=== PATIENT | female | born 1940 | race Caucasian/White ===

== ENCOUNTER 2021-05-11 12:57 | Emergency (ER) | payer OTHER ==
[~2021-05-11] VITALS: Ht 149.9 cm; Wt 63.5 kg
--- NOTE | ~2021-05-11 | EMS ---
[address] [address] EMS Patient Care Report Name: LB BEE Room #: REG CAROLINE Kemp#: [id number] Admission: 05/11/21 Attend Phys: Discharge: Date of : 36 Report #: [id number] THIS REPORT FOR: //name// Report Transmitted: 05/11/2021 14:39 EMS Care Summary [facility] Incident [id number] @ 05/11/2021 12:23 Incident Location [address] [place] [address] Patient LB BEE Female, 80 Years 1940 Patient Address [address] [place] [address] Patient History Asthma,Urinary Tract Infection (UTI), Patient Allergies Codeine, Patient Medications Lyrica, Atorvastatin, Xarelto, Chief Complaint "I think I have a UTI" Disposition Transported No Lights/[place] Dispatch Reason Sick Person Transported To [facility] Narrative [id number] responds C1 to report of possible sick person at independent living facility. After unremarkable response phase 1144 enters scene to find one pt [address] [address] EMS Patient Care Report Name: LB BEE Room #: REG CAROLINE Kemp#: [id number] Admission: 05/11/21 Attend Phys: Discharge: Date of : 36 Report #: [id number] supine in her bed w/ her daughter at her side. Pt daughter states that she activated EMS because her mother has been "slowly declining" over the past six days. Pt states that she simply "doesn't feel good" and believes she has a UTI because she has low grade tenderness in bilateral quadrants of her lower abdomen. She states that she has no CP, SOB, Palpitations, or other signs of a cardiac event. Pt states that she has chronic UTI's and that she is prescribed a daily abx due to this. However, pt states that she has not taken the antibiotic over the past six days because she hasn't felt well enough. Pt states that she would like to be transported to [facility], but due to their "High volume" status, settles on [facility]. Pt rests comfortably on EMS cot through duration of care which is transferred to triage staff at [facility]. 1144 clears and returns to service. Initial Vitals @12:40BP: 142/80, @12:31P: 84,R: 16,BP: 135/79,Pain: 0/10,GCS: 15,Temp: 98.1F,SpO2: 95,Revised Trauma: 12, Assessments @12:30MENTAL:Person Oriented,Time Oriented,Place Oriented,Event Oriented,SKIN:HEENT:LUNG SOUNDS:General: Diarrhea,Left Lower: Tenderness,Right Lower: Tenderness,ABDOMEN:General: Diarrhea,Left Lower: Tenderness,Right Lower: Tenderness,PELVIS//GI:EXTREMITIES:PULSE:NEURO:No Abnormalities, Impression Urinary Tract Infection (UTI) Procedures @PTASurgical Mask on PatientResponse: Unchanged Timeline [employer],Surgical Mask on Patient,Response: Unchanged 12:20,Call Received 12:20,Psap Call 12:23,Dispatched 12:23,En Route 12:24,On Scene 12:29,At Patient 12:31,BP: 135/79 M,PULSE: 84,RR: 16 R,SPO2: 95 Ox,ETCO2: ,BG: ,PAIN: 0,GCS: 15, 12:40,BP: 142/80 M,PULSE: ,RR: R,SPO2: Ox,ETCO2: ,BG: ,PAIN: ,GCS: , 12:45,Depart Scene 13:06,At Destination 13:11,Call Closed Disclaimer v1.1 Copyright 2020 [employer], [address] [address] EMS Patient Care Report Name: LB BEE Room #: REG [facility].#: [id number] Admission: 05/11/21 Attend Phys: Discharge: Date of : 36 Report #: [id number] This EMS Care Summary contains data elements from the applicable legal record (which may be displayed differently). It is designed to provide pertinent information for the following purposes: continuity of care, clinical quality, and state data reporting. The complete legal record is available to ED staff and administrators of the receiving hospital in [employer] Patient Tracker. All data is provided "as is."
[2021-05-11 14:42] LABS: CALCIUM 9.4 mg/dL (8.5-10.1); CREATININE 1.8 mg/dL (0.6-1.0); POTASSIUM 4.3 mmol/L (3.5-5.1)
[2021-05-11 14:49] LABS: ALBUMIN 3.5 g/dL (3.4-5.0); DIRECT BILIRUBIN 0.1 mg/dL (<0.1-0.2); TOTAL BILIRUBIN 0.6 mg/dL (0.2-1.0); TOTAL PROTEIN 7.7 g/dL (6.4-8.2)
[2021-05-11 14:53] LABS: ABSOLUTE NEUTROPHILS 6.9 thou/uL (1.4-8.2); BASOPHILS 0.4 % (0.0-2.0); EOSINOPHILS 0.8 % (0.0-3.0); HEMATOCRIT 42.9 % (37.0-47.0); HEMOGLOBIN 14.2 gm/dL (12.0-15.0); LYMPHOCYTES 15.1 % (24.0-44.0); MCV 90.8 fL (80.0-100.0); MONOCYTES 8.6 % (1.0-8.0); PLATELET COUNT 298 thou/uL (150-400); POLYS 75.1 % (36.0-66.0); RBC 4.72 mil/uL (4.20-5.00); RDW 15.4 % (10.5-14.5); WBC 9.2 thou/uL (4.0-11.0)
[2021-05-11 15:06] LABS: URINE BLOOD 3+ (Negative); URINE CLARITY CLOUDY; URINE GLUCOSE-RANDOM* NEGATIVE (Negative); URINE KETONES 1+ (Negative); URINE NITRITE-REFLEX NEGATIVE (Negative); URINE PROTEIN (DIPSTICK) 2+ (Negative); URINE SPECIFIC GRAVITY >= 1.030 (1.005-1.035); URINE UROBILINOGEN 0.2 E.U./dl (0.2-1.0)
[2021-05-11 15:07] LABS: URINE LEUKOCYTES-REFLEX 1+ (Negative)
[2021-05-11 15:08] LABS: ICTOTEST (BILI CONFIRMATORY) Negative (Negative); URINE BILIRUBIN NEGATIVE (Negative); URINE COLOR DARK YELLOW
[2021-05-11 15:16] LABS: APTT 27.1 Seconds (24.5-32.8); INR 0.95; PROTIME 10.4 Seconds (10.5-12.1)
[2021-05-11 15:27] LABS: SQUAMOUS 0-3 Few /LPF (0-3); URINE RBC >20 Many /HPF (NONE SEEN)
[2021-05-11 15:28] LABS: BACTERIA-REFLEX 1-9 Few /HPF (None Seen); CASTS None Seen /LPF (None Seen); CRYSTALS None Seen /LPF (None Seen)
[2021-05-11] MEDS ORDERED: LYRICA100 MG PO (16:40)
[2021-05-11] MEDS ORDERED: FLONASE 0.05%50 MCG NARES (16:41)
[2021-05-11] MEDS ORDERED: LIPITOR40 MG PO (16:41)
[2021-05-11] MEDS ORDERED: DEXILANT60 MG PO (16:41)
[2021-05-11] MEDS ORDERED: ZOLOFT50 M1 PO (16:41)
[2021-05-11] MEDS ORDERED: CEPHALEXIN500 MG PO (16:45)
[2021-05-11 17:33] VITALS: BP 134/74
== END 2021-05-11 17:35 | disposition home or self-care (01) ==
LOC: ER 12:57
PROVIDERS: Emergency Medicine; Nurse Practitioner
DX: R10.84 Generalized abdominal pain (principal); R10.2 Pelvic and perineal pain; E03.9 Hypothyroidism, unspecified; G43.909 Migraine, unspecified, not intractable, without status migrainosus; Z90.710 Acquired absence of both cervix and uterus; Z90.89 Acquired absence of other organs; Z79.899 Other long term (current) drug therapy; Z20.822 Contact with and (suspected) exposure to COVID-19